=== PATIENT | male | born 1970 | race Caucasian/White ===

== ENCOUNTER 2018-03-26 07:57 | Emergency (ER) | payer OTHER, BC ==
[2018-03-26 08:01] VITALS: BP 140/90; PULSE 74; TEMP 98.2; BMI 33.3
--- NOTE | 2018-03-26 08:30 | PDOC ---
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 Patient now complains of left knee pain on the anterior aspect and inability to extend the distal aspect of the fourth digit right hand. Patient denies pain in the right hand however states the pain on the anterior aspect of the left knee is a throb and rates it at a 3 out of 10. He denies hitting his head and denies LOC. He denies neck or back pain. Patient denies previous injury or surgeries to his left knee and right hand. Patient denies any relieving factors. 03/26/18 08:25 Timing/Duration: 1-3 hours Severity: mild Past History - Travel Traveled outside of the country in the last 30 days: No Close contact w/someone who was outside of country & ill: No - Past Medical History Allergies/Adverse Reactions: Allergies Allergy/AdvReac Type Severity Reaction Status Date / Time No Known Allergies Allergy Verified 06/01/16 13:17 Home Medications: Ambulatory Orders Nebivolol HCl [Bystolic] 5 mg PO DAILY 05/23/16 Oxycodone HCl/Acetaminophen [Percocet 5-325 mg Tablet] 1 tab PO Q4H #42 tablet MDD 6 05/24/16 COPD: No GI Disorders: Yes (HEMMORHOIDS) HTN: Yes Kidney Stones: Yes - Surgical History Abdominal Surgery: Yes (UMBILICAL HERNIA REPAIR) - Immunization History Immunization Up to Date: Yes - Suicide/Smoking/Psychosocial Hx Smoking History: Never smoked Have you smoked in the past 12 months: No Number of Cigarettes Smoked Daily: 20 Information on smoking cessation initiated: No 'Breaking Loose' booklet given: 06/01/16 Hx Alcohol Use: No Drug/Substance Use Hx: No Substance Use Type: None Hx Substance Use Treatment: No Review of Systems - Review of Systems Able to Perform ROS?: Yes Musculoskeletal: No: Back Pain All Other Systems: Reviewed and Negative *Physical Exam - Vital Signs Last Vital Signs Temp Pulse Resp BP Pulse Ox 98.2 F 74 20 140/90 99 03/26/18 07:58 03/26/18 07:58 03/26/18 07:58 03/26/18 07:58 03/26/18 07:58 - Physical Exam Comments: Constitutional: VS stated, pt appears in no apparent distress; ambulated to examination room, steady gait noted Skin: Warm and dry. Intact, no lesions or excoriations. Head: Normocephalic; atraumatic Eyes:conjunctiva pink without injection or discharge. Throat: Oropharynx with pink and moist mucosa. Neck: Supple, non-tender, with full ROM, trachea midline, no anterior/posterior cervical chain lymphadenopathy, thyroid nonpalpable. No stridor or bruits. Lungs: Bilateral breath sounds clear upon auscultation. No adventitious breath sounds. Heart: Regular rate and rhythm, S1/S2 auscultated. No murmurs, rubs, or gallops. No visible pulsations, heaves, or lifts on precordium. Musculoskeletal: Focused on the left knee. No deformity. Patient is able to flex and extend without difficulty. Negative Dao. Negative Miryam. Negative anterior drawer test. Pedal pulses present, cap refill less than 2 seconds, sensation intact. Focused on the right hand. No pain upon palpation. Patient is able to make a fist without difficulty. He can make an okay sign without difficulty. Patient has slight flexion of the distal aspect of the fourth digit. He can resist pressure however has difficulty extending the distal aspect. Radial pulse present, cap refill less than 2 seconds, sensation intact. Neurologic: Awake, alert. Conversation fluent. Psychiatric: Appropriate affect. 03/26/18 08:27 ED Treatment Course - RADIOLOGY Radiology Studies Ordered: Category Date Time Status HAND- RIGHT [RAD] Stat Radiology 03/26/18 08:22 Ordered KNEE 4 POS-LEFT [RAD] Stat Radiology 03/26/18 08:23 Ordered 03/26/18 08:30 Patient's left knee x-ray was reviewed by myself as negative. Patient's right hand x-ray was reviewed by myself as negative for a fracture, however, based upon PE and the distal aspect of the 4th digit in slight flexion , I splinted the finger with an alumafoam splint. Pt was neurovascularly intact post splint application. Fernando was applied to the left knee. 03/26/18 08:46 *DC/Admit/Observation/Transfer Diagnosis at time of Disposition: Knee sprain, Tendon injury - Discharge Dispostion Disposition: HOME Condition at time of disposition: Stable - Referrals Referrals: Huy Hyman MD [Primary Care Provider] - Samuel Tran MD [Staff Physician] - - Patient Instructions Additional Instructions: In reference to your knee, Fernando wrap on for comfort measures. Elevate. Ice 20 minutes on/20 minutes off for the next 24 hours. If you have any discomfort you can alternate Tylenol 650 mg every 4 hours and ibuprofen 600 mg every 6 hours. In reference to your finger injury, keep AlumaFoam splint on and follow- up with orthopedics. - Post Discharge Activity
== END 2018-03-26 09:10 | disposition home or self-care (01) ==
LOC: JER 07:57 → JERFT 07:57
DX: S83.92XA Sprain of unspecified site of left knee, initial encounter (principal); S66.901A Unspecified injury of unspecified muscle, fascia and tendon at wrist and hand level, right hand, initial encounter; Y35.891A Legal intervention involving other specified means, law enforcement official injured, initial encounter; Y93.89 Activity, other specified; Y92.9 Unspecified place or not applicable; Y99.0 Civilian activity done for income or pay; I10 Essential (primary) hypertension; Z87.442 Personal history of urinary calculi; K64.9 Unspecified hemorrhoids
CPT/HCPCS: 73130-TC-RT-FY; 73564-TC-LT-FY; 99281-25

== ENCOUNTER 2019-07-14 10:43 | Emergency (ER) | payer BC, OTHER ==
[2019-07-14 10:54] VITALS: BP 125/85; PULSE 81; TEMP 98.6; BMI 29.0
--- NOTE | 2019-07-14 11:46 | PDOC ---
History of Present Illness - General Chief Complaint: Pain Stated Complaint: RIGHT FOOT PAIN Time Seen by Provider: 07/14/19 11:39 - History of Present Illness Initial Comments: 07/14/19 12:04 Chief complaint: Pain right foot HPI: Patient was walking up stairs Friday, experienced sudden pain in his right foot. The pain has persisted and is aggravated by standing and walking. It is located on the dorsum of the proximal foot, laterally. There is no ankle pain, or other pain proximal to the foot. Review of systems: No fever/chills, redness, warmth, or deformation noted. There is no numbness tingling pain or weakness distal. Past medical history: No history of prior joint inflammation or swelling. No history of severe sprain or fracture. High blood pressure and mood disorder managed with medication. No new medications recently. Social history: Denies tobacco alcohol or nonprescription drugs. 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 Family history: Reviewed and noncontributory Physical exam: Alert and oriented well-developed well-nourished no acute distress cooperative Afebrile, vital signs normal Right foot: There is mild swelling and tenderness over the tendons and ligaments of the dorsum of the foot, over the base of the third fourth and fifth metatarsals. There is no deformity. There is no warmth or erythema. There is no point tenderness of the base of the fifth metatarsal, the malleoli of the ankle, or the Achilles. There is no swelling or deformity noted of the foot or ankle. Pulses are full. No distal sensory or motor deficits. There is , however, significant pain with extension of the third fourth and fifth toes. Impression: Ligament sprain, possible tendinitis of the extensor tendons of the lateral foot. No evidence of fracture. Plan: Symptomatic treatment and orthopedic follow-up if no improvement. Patient adequately ambulatory at discharge to follow-up as directed. Past History - Past Medical History Allergies/Adverse Reactions: Allergies Allergy/AdvReac Type Severity Reaction Status Date / Time No Known Allergies Allergy Verified 07/14/19 10:45 Home Medications: Ambulatory Orders Nebivolol HCl [Bystolic] 10 mg PO DAILY 05/23/16 Escitalopram Oxalate [Lexapro -] 10 mg PO DAILY 07/14/19 Ibuprofen 800 mg PO TID #20 tablet 07/14/19 COPD: No GI Disorders: Yes (HEMMORHOIDS) HTN: Yes Kidney Stones: Yes Psychiatric Problems: Yes (ANXIETY DEPRESSION) - Surgical History Abdominal Surgery: Yes (UMBILICAL HERNIA REPAIR) - Immunization History Immunization Up to Date: Yes - Psycho Social/Smoking Cessation Hx Smoking History: Former smoker Have you smoked in the past 12 months: Yes Number of Cigarettes Smoked Daily: 20 If you are a former smoker, when did you quit?: 8 MONTHS AGO Information on smoking cessation initiated: No 'Breaking Loose' booklet given: 06/01/16 Hx Alcohol Use: No (STOPPED 90 DAYS AGO) Drug/Substance Use Hx: No Substance Use Type: None Hx Substance Use Treatment: No *Physical Exam - Vital Signs Last Vital Signs Temp Pulse Resp BP Pulse Ox 98.6 F 81 16 125/85 100 07/14/19 10:45 07/14/19 10:45 07/14/19 10:45 07/14/19 10:45 07/14/19 10:45 Discharge - Discharge Information Problems reviewed: Yes Clinical Impression/Diagnosis: Foot sprain Qualifiers: Encounter type: initial encounter Laterality: right Qualified Code(s): S93.601A - Unspecified sprain of right foot, initial encounter Condition: Stable Disposition: HOME - Admission No - Additional Discharge Information Prescriptions: Ibuprofen 800 mg PO TID #20 tablet - Follow up/Referral Referrals: Harshal Marshall MD [Staff Physician] - 1 week - Patient Discharge Instructions Patient Printed Discharge Instructions: DI for Tendinitis, DI for Foot Sprain Additional Instructions: Rest ice elevate Fernando wrap anti-inflammatory medication as prescribed. See orthopedist for further evaluation and treatment if there is no improvement in 1 week. - Post Discharge Activity
== END 2019-07-14 11:51 | disposition home or self-care (01) ==
LOC: FER 10:43
DX: S93.601A Unspecified sprain of right foot, initial encounter (principal); Z87.891 Personal history of nicotine dependence; I10 Essential (primary) hypertension; N20.0 Calculus of kidney; F41.8 Other specified anxiety disorders; K92.9 Disease of digestive system, unspecified; X58.XXXA Exposure to other specified factors, initial encounter; Y93.89 Activity, other specified; Y92.89 Other specified places as the place of occurrence of the external cause
CPT/HCPCS: 99282-25

== ENCOUNTER 2020-09-07 14:44 | Emergency (ER) | payer BC ==
[2020-09-07] MEDS ORDERED: CASIRIVIMAB (REGN10933) 1,200 MG, IMDEVIMAB (REGN10987) 1,200 MG in SODIUM CHLORIDE 230 ML IVPB ONE (15:09)
[2020-09-07 15:25] VITALS: BP 136/89; PULSE 109; TEMP 97.8; BMI 40.7
[2020-09-07 16:06] LABS: HEMATOCRIT 47.8 % (35.4-49); HEMOGLOBIN 16.4 GM/dL (11.7-16.9); MCH 31.7 pg (25.7-33.7); MCHC 34.2 g/dl (32.0-35.9); MEAN CELL VOLUME 92.6 fl (80-96); MEAN PLT VOLUME 8.6 fl (7.5-11.1); PLATELET COUNT 210 K/MM3 (134-434); RBC 5.17 M/mm3 (4.00-5.60); RDW 12.5 % (11.9-15.9); WHITE BLOOD COUNT 3.3 K/mm3 (4.0-10.0)
[2020-09-07 16:24] LABS: POTASSIUM 4.9 mmol/L (3.5-5.1)
[2020-09-07 16:25] LABS: CALCIUM 8.5 mg/dL (8.5-10.1)
[2020-09-07 16:26] LABS: BLOOD UREA NITROGEN 13.4 mg/dL (7-18)
[2020-09-07 16:47] LABS: CREATININE 0.7 mg/dL (0.55-1.3)
== END 2020-09-07 18:27 | disposition home or self-care (01) ==
LOC: JCOVINFU 14:44 → JER 14:44 → JCOVINFU 18:27
DX: U07.1 COVID-19 (principal)
CPT/HCPCS: 36415; 80048; 82728; 83615; 85027; 86140; 99284-25; M0243; Q0243

== ENCOUNTER 2021-06-23 15:00 | Emergency (ER) | payer BC, OTHER ==
[2021-06-23 15:16] VITALS: BP 152/97; PULSE 96; TEMP 98.7; BMI 33.3
== END 2021-06-23 16:24 | disposition home or self-care (01) ==
LOC: FER 15:00
DX: S00.03XA Contusion of scalp, initial encounter (principal); W19.XXXA Unspecified fall, initial encounter; Y92.9 Unspecified place or not applicable
CPT/HCPCS: 99283-25

== ENCOUNTER 2021-07-03 08:45 | Emergency (ER) | payer BC ==
[2021-07-03] MEDS ORDERED: ACETAMINOPHEN 500 MG TABLET (FP) PO ONE (09:00)
[2021-07-03 09:05] VITALS: BP 139/96; PULSE 85; TEMP 99.3; BMI 36.6
[2021-07-03] MEDS ORDERED: ACETAMINOPHEN 500 MG TABLET (FP) ONE (09:06)
== END 2021-07-03 10:34 | disposition home or self-care (01) ==
LOC: FER 08:45
DX: M79.672 Pain in left foot (principal)
CPT/HCPCS: 73630-TC-LT; 99284-25

== ENCOUNTER 2023-08-19 01:00 | Emergency (ER) | payer BC ==
[2023-08-19] MEDS ORDERED: FAMOTIDINE 20 MG/50 ML IVPB 20 MG/50 ML MG IVPB ONE ×2 (01:35→01:53)
[2023-08-19] MEDS ORDERED: ACETAMINOPHEN 1000 MG/100 ML BAG IVPB ONE (01:36)
[2023-08-19] MEDS ORDERED: ONDANSETRON 4 MG/2 ML VIAL IVPB ONE (01:36)
[2023-08-19 01:40] VITALS: BP 134/95; PULSE 84; RESP 16; TEMP 97.9; BMI 30.5
[2023-08-19] MEDS ORDERED: ACETAMINOPHEN INJECTION 100 ML IVPB ONE (01:53)
[2023-08-19] MEDS ORDERED: ONDANSETRON 4 MG/2 ML VIAL ONE (01:53)
[2023-08-19 02:55] LABS: PH,URINE 5.5 (5.0-8.0); URINE APPEARANCE CLEAR; URINE BILIRUBIN NEGATIVE (NEGATIVE); URINE COLOR YELLOW; URINE GLUCOSE (UA) 3+ (NEGATIVE); URINE KETONE NEGATIVE (NEGATIVE); URINE LEUK ESTERASE NEGATIVE (NEGATIVE); URINE NITRITE NEGATIVE (NEGATIVE); URINE PROTEIN NEGATIVE (NEGATIVE); URINE UROBILINOGEN 0.2 mg/dL (0.2-1.0)
[2023-08-19 03:00] LABS: BASO % 0.2 % (0-2.0); EOS % 0.9 % (0-4.5); HEMATOCRIT 45.4 % (35.4-49); HEMOGLOBIN 15.3 GM/dL (11.7-16.9); MCH 31.4 pg (25.7-33.7); MCHC 33.7 g/dl (32.0-35.9); MEAN PLT VOLUME 8.8 fl (7.5-11.1); MONO % 9.9 % (3.8-10.2); PLATELET COUNT 233 10^3/uL (134-434); RBC 4.88 M/mm3 (4.00-5.60); RDW 12.7 % (11.9-15.9); WHITE BLOOD COUNT 10.1 K/mm3 (4.0-10.0)
[2023-08-19 03:12] LABS: POTASSIUM 3.9 mmol/L (3.5-5.1)
[2023-08-19 03:14] LABS: CALCIUM 8.7 mg/dL (8.5-10.1)
[2023-08-19 03:15] LABS: ALBUMIN 3.6 g/dl (3.4-5.0)
[2023-08-19 03:18] LABS: CREATININE 0.8 mg/dL (0.55-1.3)
[2023-08-19 03:19] LABS: TOT PROT 7.3 g/dl (6.4-8.2)
[2023-08-19 03:20] LABS: BILIRUBIN,TOTAL 0.3 mg/dL (0.2-1)
[2023-08-19] MEDS ORDERED: MAG HYDROX/AL HYDROX/SIMETH -MYLANTA- ORAL SUSPENSION PO ONE (03:39)
[2023-08-19] MEDS ORDERED: MAG HYDROX/AL HYDROX/SIMETH 30 ML UNIT-DOSE CUP ONE (03:45)
== END 2023-08-19 03:51 | disposition home or self-care (01) ==
LOC: FER 01:00
PROC: 3E033GC Introduction of Other Therapeutic Substance into Peripheral Vein, Percutaneous Approach (ICD-10-PCS; principal; 2023-08-19)
PROC: 3E033NZ Introduction of Analgesics, Hypnotics, Sedatives into Peripheral Vein, Percutaneous Approach (ICD-10-PCS; 2023-08-19)
PROC: 3E033GC Introduction of Other Therapeutic Substance into Peripheral Vein, Percutaneous Approach (ICD-10-PCS; 2023-08-19)
DX: R10.13 Epigastric pain (principal); R11.2 Nausea with vomiting, unspecified; R14.0 Abdominal distension (gaseous); K52.9 Noninfective gastroenteritis and colitis, unspecified
CPT/HCPCS: 36415; 74018-TC-FY; 80053; 81003; 83690; 85025; 99284-25